=== PATIENT | male | born 1960 | race African-American/Black ===

== ENCOUNTER 2018-09-15 14:16 | Emergency (ER) | payer MEDICARE, OTHER ==
[2018-09-15] VITALS (7 sets, daily range): BP systolic 124–139; BP diastolic 68–82
[~2018-09-15] VITALS: Ht 198.1 cm; Wt 95.3 kg
--- NOTE | 2018-09-15 14:33 | Emergency Room Report ---
History of Present Illness General Chief Complaint: Abnormal Labs Source: Patient Present Illness HPI Patient is a 57-year-old male brought in by EMS after increased blood sugar. Patient had noticed increased blood sugar when checking on his meter. He stated that his blood sugar has been greater than 600 when he checked today. Patient was noted to have high blood sugar by EMS. Patient states that he is currently taking metformin as well as glyburide. He reports having prior history of peripheral vascular repairs as well as prior cardiac stenting. Patient states that he has not been having any new discomfort. He reports having increased thirst as well as increased urine output. He denies any prior history of kidney problems. Patient states he is followed by Dr. Flores. Allergies: Coded Allergies: No Known Allergies (Unverified , 09/15/18) Patient History Past Medical History: see triage record Reviewed Nursing Documentation: PMH: Agreed; PSxH: Agreed Nursing Documentation-PM Past Medical History: No History, Except For Hx Hypertension: Yes Hx Diabetes: Yes Review of Systems All Other Systems: negative except mentioned in HPI Physical Exam Vital Signs Date Time Temp Pulse Resp B/P (MAP) Pulse Ox O2 Delivery O2 Flow Rate FiO2 09/15/18 14:13 99.0 102 14 95 Room Air Sp02 EP Interpretation: reviewed, normal General Appearance: normal inspection, well appearing, no apparent distress, alert, GCS 15 Head: atraumatic ENT: normal ENT inspection, hearing grossly normal, normal voice Neck: normal inspection, full range of motion, supple, no bony tend Respiratory: normal inspection, lungs clear, normal breath sounds, no respiratory distress, no retraction, no wheezing Cardiovascular #1: no edema, tachycardia Gastrointestinal: normal inspection, normal bowel sounds, non tender, soft, no guarding, no hernia Genitourinary: no CVA tenderness Musculoskeletal: normal inspection, back normal, normal range of motion Neurologic: normal inspection, alert, oriented x3, responsive, special events driver III-XII nml as tested, speech normal Psychiatric: normal inspection, judgement/insight normal, mood/affect normal Skin: normal inspection, normal color, no rash Medical Decision Making Diagnostic Impression: Primary Impression: Uncontrolled diabetes mellitus ER Course Patient presented for elevated blood sugar. Differential diagnosis include was not limited to dietary indiscretion, medication noncompliance, myocardial infarction, infection among others. Because of complexity of patient's case laboratory testing and imaging studies were ordered.Patient's initial blood sugar was noted to be 815. Patient was awake and alert. He was started on IV fluids as well as IV insulin. EKG interpreted by me showed sinus tachycardia with a rate of [address] or T wave changes. Right bundle branch block was present.Patient was noted to be reportedly compliant with his medications. Patient will likely require inpatient management due to markedly elevated blood sugar.Patient noted to have a normal bicarbonate level. Potassium was slightly elevated but no peaking of the T waves was noted.Patient did not show any evidence of diabetic ketoacidosis.Patient will require inpatient management to help control blood sugar.Repeat blood sugar was noted to be greater than 500.Patient was discussed with Dr. Peterson Javier for transfer to [facility]. Laboratory Tests Test 09/15/18 14:30 White Blood Count 4.6 K/UL (4.8-10.8) L Red Blood Count 4.03 M/UL (4.70-6.10) L Hemoglobin 12.1 G/DL (14.2-18.0) L Hematocrit 37.4 % (42.0-52.0) L Mean Corpuscular Volume 93 FL (80-99) Mean Corpuscular Hemoglobin 30.1 PG (27.0-31.0) Mean Corpuscular Hemoglobin Concent 32.4 G/DL (32.0-36.0) Red Cell Distribution Width 11.4 % (11.6-14.8) L Platelet Count 144 K/UL (150-450) L Mean Platelet Volume 10.3 FL (6.5-10.1) H Neutrophils (%) (Auto) 65.7 % (45.0-75.0) Lymphocytes (%) (Auto) 24.7 % (20.0-45.0) Monocytes (%) (Auto) 7.9 % (1.0-10.0) Eosinophils (%) (Auto) 0.8 % (0.0-3.0) Basophils (%) (Auto) 0.8 % (0.0-2.0) Prothrombin Time 20.1 SEC (9.30-11.50) H Prothrombin Time INR 2.0 (0.9-1.1) H Urine Color Pale yellow Urine Appearance Clear Urine pH 5 (4.5-8.0) Urine Specific [place] 1.010 (1.005-1.035) Urine Protein Negative (NEGATIVE) Urine Glucose (UA) 4+ (NEGATIVE) H Urine Ketones Negative (NEGATIVE) Urine Blood Negative (NEGATIVE) Urine Nitrite Negative (NEGATIVE) Urine Bilirubin Negative (NEGATIVE) Urine Urobilinogen Normal MG/DL (0.0-1.0) Urine Leukocyte Esterase Negative (NEGATIVE) Urine RBC 0 /HPF (0 - 0) Urine WBC 0 /HPF (0 - 0) Urine Squamous Epithelial Cells None /LPF (NONE/OCC) Urine Bacteria Occasional /HPF (NONE) Sodium Level 130 MMOL/L (136-145) L Potassium Level 5.2 MMOL/L (3.5-5.1) H Chloride Level 95 MMOL/L (98-107) L Carbon Dioxide Level 23 MMOL/L (21-32) Anion Gap 12 mmol/L (5-15) Blood Urea Nitrogen 23 mg/dL (7-18) H Creatinine 1.8 MG/DL (0.55-1.30) H Estimate Glomerular Filtration Rate 39.2 mL/min (>60) Glucose Level 815 MG/DL (74-106) *H Calcium Level 9.1 MG/DL (8.5-10.1) Total Bilirubin 0.3 MG/DL (0.2-1.0) Aspartate Amino Transferase (AST) 17 U/L (15-37) Alanine Aminotransferase (ALT) 26 U/L (12-78) Alkaline Phosphatase 90 U/L (46-116) Troponin I 0.017 ng/mL (0.000-0.056) Total Protein 7.8 G/DL (6.4-8.2) Albumin 3.5 G/DL (3.4-5.0) Globulin 4.3 g/dL Albumin/Globulin Ratio 0.8 (1.0-2.7) L Lipase 232 U/L (73-393) Urine Opiates Screen Negative (NEGATIVE) Urine Barbiturates Screen Negative (NEGATIVE) Phencyclidine (PCP) Screen Negative (NEGATIVE) Urine Amphetamines Screen Negative (NEGATIVE) Urine Benzodiazepines Screen Negative (NEGATIVE) Urine Cocaine Screen Negative (NEGATIVE) Urine Marijuana (THC) Screen Negative (NEGATIVE) EKG Diagnostic Results Rate: tachycardiac Rhythm: NSR ST Segments: no acute changes Last Vital Signs Date Time Temp Pulse Resp B/P (MAP) Pulse Ox O2 Delivery O2 Flow Rate FiO2 09/15/18 14:13 99.0 102 14 95 Room Air Status: improved Disposition: XFER SHT-TRM HOSP Condition: Stable Galindo Hinojosa MD September 15, 2018 14:33
[2018-09-15] MEDS ORDERED: Insulin Human Regular 100units/ml 3ml IV ONE ×2 (14:45→15:15)
[2018-09-15 14:57] LABS: APPEARANCE,URINE CLEAR; BILIRUBIN, URINE NEGATIVE (NEGATIVE); COLOR,URINE PALE YELLOW; GLUCOSE, URINE (UA) 4+ (NEGATIVE); KETONES,URINE NEGATIVE (NEGATIVE); LEUKOCYTE ESTERASE ,URINE NEGATIVE (NEGATIVE); NITRITE,URINE NEGATIVE (NEGATIVE); PH,URINE 5 (4.5-8.0); PROTEIN,URINE NEGATIVE (NEGATIVE); UROBILINOGEN,URINE NORMAL MG/DL (0.0-1.0)
[2018-09-15] MEDS ORDERED: WARFARIN SODIU7.5 MG ORAL (14:57)
[2018-09-15] MEDS ORDERED: METFORMIN HCL1000 M1 ORAL (14:57)
[2018-09-15] MEDS ORDERED: GLIPIZIDE5 MG ORAL (14:57)
[2018-09-15] MEDS ORDERED: LOSARTAN POTASS25 MG ORAL (14:57)
[2018-09-15 14:58] LABS: BASOPHILS % (AUTO) 0.8 % (0.0-2.0); EOSINOPHILS % (AUTO) 0.8 % (0.0-3.0); HEMATOCRIT 37.4 % (42.0-52.0); HEMOGLOBIN 12.1 G/DL (14.2-18.0); LYMPHOCYTES % (AUTO) 24.7 % (20.0-45.0); MEAN CORPUSCULAR VOLUME 93 FL (80-99); MONOCYTES % (AUTO) 7.9 % (1.0-10.0); NEUTROPHILS % (AUTO) 65.7 % (45.0-75.0); PLATELET COUNT 144 K/UL (150-450); RED BLOOD COUNT 4.03 M/UL (4.70-6.10); RED CELL DISTRIBUTION WIDTH 11.4 % (11.6-14.8); WHITE BLOOD COUNT 4.6 K/UL (4.8-10.8)
[2018-09-15 15:06] LABS: ANION GAP 12 mmol/L (5-15); BLOOD UREA NITROGEN 23 mg/dL (7-18); CALCIUM 9.1 MG/DL (8.5-10.1); CARBON DIOXIDE 23 MMOL/L (21-32); CHLORIDE 95 MMOL/L (98-107); CREATININE 1.8 MG/DL (0.55-1.30); POTASSIUM 5.2 MMOL/L (3.5-5.1); SODIUM 130 MMOL/L (136-145)
[2018-09-15 15:09] LABS: ALANINE AMINOTRANSFERASE 26 U/L (12-78); ALBUMIN 3.5 G/DL (3.4-5.0); ALBUMIN/GLOBULIN RATIO 0.8 (1.0-2.7); ALKALINE PHOSPHATASE 90 U/L (46-116); ASPARTATE AMINO TRANSFERASE 17 U/L (15-37); BILIRUBIN,TOTAL 0.3 MG/DL (0.2-1.0)
[2018-09-15] MEDS: LR 1000ml 1,000 ML IV SCH ×2 (16:10→21:16)
== END 2018-09-15 21:40 | disposition short-term general hospital (02) ==
LOC: EDBD 14:16 → EMR 14:55
DX: E11.65 Type 2 diabetes mellitus with hyperglycemia (principal); I10 Essential (primary) hypertension; R00.0 Tachycardia, unspecified; Z79.84 Long term (current) use of oral hypoglycemic drugs
CPT/HCPCS: 36415; 80053; 80307; 81001; 82962; 83690; 84484; 85025; 85610; 96361; 96365; 96366; 96375; 96376; 99285; J1815